=== PATIENT | female | born 1945 | race Caucasian/White ===

== ENCOUNTER 2018-05-19 10:02 | Emergency (ER) | payer MEDICARE, BC ==
[~2018-05-19] VITALS: Ht 170.2 cm; Wt 68.0 kg
[2018-05-19 12:23] VITALS: BP 148/58
== END 2018-05-19 12:31 | disposition home or self-care (01) ==
LOC: M.ERS 10:02
DX: S09.8XXA Other specified injuries of head, initial encounter (principal); Z88.0 Allergy status to penicillin; W22.8XXA Striking against or struck by other objects, initial encounter; Y93.89 Activity, other specified; Y92.89 Other specified places as the place of occurrence of the external cause; Y99.8 Other external cause status